=== PATIENT | female | born 1970 | race Caucasian/White ===

== ENCOUNTER 2020-11-13 19:14 | Emergency (ER) | payer OTHER, SELFPAY ==
[2020-11-13 19:17] VITALS: BP 160/90; PULSE 100; RESP 17; TEMP 36.1; O2SAT 100
--- NOTE | 2020-11-13 20:12 | ED.EAR ---
HPI - Ear Problem General Chief complaint: Ear Stated complaint: bilateral ear pain Time Seen by Provider: 11/13/20 19:27 Source: patient and old records reviewed Mode of arrival: ambulatory Limitations: no limitations History of Present Illness HPI Narrative: Patient is a 50-year-old female who presents with bilateral ear pain has been going on for roughly a week or more patient was seen at urgent care had her ears cleaned out and has since been putting drops in the ear and using hydrogen peroxide and is now noting that she has some drainage and increasing pain to the bilateral ears patient denies fever chills nausea vomiting or other URI symptoms patient did not follow-up with the provided ENT referral that she received at urgent care Related Data Allergies Allergy/AdvReac Type Severity Reaction Status Date / Time acetaminophen Allergy Unknown UNKNOWN Verified 11/13/20 19:15 TYLENOL WITH CODEIN Allergy Unknown Uncoded 11/13/20 19:15 Review of Systems Review of Systems: All systems reviewed & are unremarkable except as noted in HPI and below PMFSH Past Medical History Medical History (Updated 11/13/20 @ 20:15 by Rick Hopper PA-C) Bipolar disorder Social History Social History (Updated 11/13/20 @ 20:13 by Rick Hopper PA-C) Smoking status: Current every day smoker Gender identity (if verbalized by the patient): Female Exam Narrative: Exam Narrative: GENERAL: Well-appearing, well-nourished, and in no acute distress. HEAD: Normocephalic, atraumatic. EYES: PERRLA and EOMI. ENT: Nares clear, no rhinorrhea or epistaxis. Mucous membranes moist. Oropharynx without tonsillar hypertrophy exudate or other lesions. Bilateral TMs slightly erythematous with poor landmarks patent canals NECK: Supple. No adenopathy or masses. CHEST: Clear to auscultation. No respiratory distress. No wheezes rales or rhonchi HEART: Regular rate and rhythm. No murmur heard. SKIN: Warm, dry, no rash. NEURO: No focal deficits. Alert and oriented x3. Cranial nerves II through XII grossly intact PSYCH: Normal mood and affect. Course Course Emergency Course: Patient in the room no distress advised to discontinue any drops in the ear will be referred to ENT and treated for otitis media Vital Signs Vital signs: Vital Signs Temperature 97 F L 11/13/20 19:17 Pulse Rate 100 11/13/20 19:17 Respiratory Rate 17 11/13/20 19:17 Blood Pressure 160/90 H 11/13/20 19:17 Pulse Oximetry 100 11/13/20 19:17 Temperature 97 F L 11/13/20 19:17 Pulse Rate 100 11/13/20 19:17 Respiratory Rate 17 11/13/20 19:17 Blood Pressure 160/90 H 11/13/20 19:17 Pulse Oximetry 100 11/13/20 19:17 Medical Decision Making MDM Narrative Medical decision making narrative: Patient with otitis media will be treated with antibiotics and medications for symptoms given ENT follow-up afebrile nontoxic-appearing no distress no emesis ABCs and vital signs intact and stable Vital Signs Vital Signs: Vital Signs Temperature 97 F L 11/13/20 19:17 Pulse Rate 100 11/13/20 19:17 Respiratory Rate 17 11/13/20 19:17 Blood Pressure 160/90 H 11/13/20 19:17 Pulse Oximetry 100 11/13/20 19:17 Temperature 97 F L 11/13/20 19:17 Pulse Rate 100 11/13/20 19:17 Respiratory Rate 17 11/13/20 19:17 Blood Pressure 160/90 H 11/13/20 19:17 Pulse Oximetry 100 11/13/20 19:17 Discharge Plan Discharge Clinical Impression: Otitis media Patient Disposition: Home, Self-Care Condition: Stable Instructions: Antibiotic Form, Ear Infection (ED) Additional Instructions: Follow up with ENT within 1-2 days to set up for reevaluation. Go to ER for shortness of breath, difficulty breathing, chest pain, fever/chills, weakness, nauseau/vomitting, increasing drainage or pain involving the ears etc. or any other concerns. Discontinue placing anything in the ear Take any prescribed medications as directed. Follow patient educat
[2020-11-13 20:40] VITALS: BP 148/79; PULSE 90; RESP 18; O2SAT 99
== END 2020-11-13 20:40 | disposition home or self-care (01) ==
PROVIDERS: Emergency Provider Emergency Medicine; PCP Family Medicine
DX: H66.93 Otitis media, unspecified, bilateral (principal); F17.200 Nicotine dependence, unspecified, uncomplicated
CPT/HCPCS: 99283

== ENCOUNTER 2020-12-24 16:25 | Emergency (ER) | payer MEDICARE, SELFPAY ==
--- NOTE | ~2020-12-24 | XR_ITS ---
EXAMINATION: XR tibia fibula RT 2V EXAM DATE: 12/24/2020 19:57 INDICATION: Initial encounter following injury, with pain of the right lower leg. TECHNIQUE: Right tibia/fibula frontal and lateral projections obtained and reviewed. There is no panchito or study for comparison. FINDINGS: Right tibial and fibular shafts unremarkable. There are no acute fractures or dislocations identified. There is no subcutaneous gas. The soft tissue is unremarkable. There are no radiopaq ue foreign bodies. IMPRESSION: 1. XR tibia fibula RT 2V exam without acute osseous findings. Reviewed, dictated and finalized at location A. [facility]
--- NOTE | ~2020-12-24 | XR_ITS ---
EXAMINATION: XR knee RT min 4V EXAM DATE: 12/24/2020 19:57 INDICATION: Initial encounter following injury, with pain of the right knee. Fell yesterday. TECHNIQUE: Right knee frontal, crosstable lateral, orthogonal oblique projections for interpretation . There is no prior study for comparison. FINDINGS: No evidence osteochondral defect or joint body in the right knee joint. There is mild to moderate medial tibiofemoral compartment primary osteoarthritis. There are no acute fractures or disl ocations identified. There is no subcutaneous gas. The soft tissue is unremarkable. There are no radiopaque foreign bodies. No joint effusion. IMPRESSION: 1. Right knee exam without acute osseous findings. Reviewed, dictated and finalized at location A. NSED APPRAISER
--- NOTE | ~2020-12-24 | XR_ITS ---
EXAMINATION: XR hip RT 2V w AP pelvis EXAM DATE: 12/24/2020 19:58 INDICATION: Initial encounter following injury, with pain of the right hip, pelvis. TECHNIQUE: Right hip frontal, 'frog leg' projections for interpretation. Frontal projection pelvis. There is no prior study for comparison. FINDINGS: Smooth right hip femoral head contour, no radiographic evidence of avascular necrosis. The re is mild to moderate symmetric bilateral hip primary osteoarthritis. There are no acute fractures o r dislocations identified. There is no subcutaneous gas. The soft tissue is unremarkable. There a re no radiopaque foreign bodies. IMPRESSION: 1. Pelvis, right hip exam without acute osseous findings. 2. Mild to moderate hip osteoarthritis. Reviewed, dictated and finalized at location A. NSE ATTORNEY
[2020-12-24 17:00] VITALS: BP 173/100; PULSE 99; RESP 18; TEMP 36.8; O2SAT 97
--- NOTE | 2020-12-24 19:21 | ED.LOWEXIN ---
HPI - Extremity Injury (Lower) General Chief Complaint: Extremity Injury, Lower Stated Complaint: fall/leg injury Time Seen by Provider: 12/24/20 19:10 Source: patient Mode of arrival: ambulatory Limitations: no limitations History of Present Illness HPI Narrative: This is a 50-year-old female that presents to the ER for right lower extremity pain after a fall yesterday. Reports she slipped on ice and fell onto her right side. Reports since she has had right hip and knee pain. Pain is worse with movement and relieved with rest. Denies hitting her head, loss of consciousness, decreased range of motion, or numbness. Related Data Allergies Allergy/AdvReac Type Severity Reaction Status Date / Time acetaminophen Allergy Unknown UNKNOWN Verified 12/24/20 17:03 TYLENOL WITH CODEIN Allergy Unknown Uncoded 12/24/20 17:03 Review of Systems Review of Systems: Narrative: CONSTITUTIONAL: Denies fever MUSCULOSKELETAL: Reports joint pain, and myalgia. NEUROLOGIC: Denies numbness, or weakness. All systems reviewed & are unremarkable except as noted in HPI and below PMFSH Past Medical History Medical History (Updated 12/24/20 @ 20:41 by Jaylyn Ji PA-C) Bipolar disorder History of hypertension Social History Social History (Updated 11/13/20 @ 20:13 by Rick Hopper PA-C) Smoking status: Current every day smoker Gender identity (if verbalized by the patient): Female Exam Narrative: Exam Narrative: GENERAL: Well-appearing, well-nourished, and in no acute distress. HEAD: Normocephalic, atraumatic. EYES: PERRLA and EOMI. ENT: Nares clear, no rhinorrhea or epistaxis. Mucous membranes moist. Oropharynx without tonsillar hypertrophy exudate or other lesions. Bilateral TMs pearly greene non-bulging NECK: Supple. No adenopathy or masses. No midline cervical spine tenderness CHEST: Clear to auscultation. No respiratory distress. No wheezes rales or rhonchi HEART: Regular rate and rhythm. No murmur heard. Normal peripheral pulses. BACK: No midline thoracic or lumbar spine tenderness EXTREMITIES: Normal range of motion. No edema or obvious deformity. Normal DP pulses SKIN: Warm, dry, no rash. NEURO: No focal deficits. Alert and oriented x3. PSYCH: Normal mood and affect Course Vital Signs Vital signs: Vital Signs Temperature 98.3 F 12/24/20 17:00 Pulse Rate 99 12/24/20 17:00 Respiratory Rate 18 12/24/20 17:00 Blood Pressure 173/100 H 12/24/20 17:00 Pulse Oximetry 97 12/24/20 17:00 Temperature 98.3 F 12/24/20 17:00 Pulse Rate 99 12/24/20 17:00 Respiratory Rate 18 12/24/20 17:00 Blood Pressure 173/100 H 12/24/20 17:00 Pulse Oximetry 97 12/24/20 17:00 MDM - Extremity Injury (Lower) MDM Narrative Medical decision making narrative: Patient presents the emergency department for right hip and knee pain after a fall yesterday. Right hip, knee, and tib-fib x-rays are without acute osseous abnormalities. Patient was updated on case findings. She was instructed to rest, ice and take [id number] pain medication as needed. Given Wes wrap for the knee. Would not like crutches as she reports she has difficulty using them. She is to follow-up with primary care doctor. She was given warnings to return to the ER Imaging Data Radiologist's impression: ITS Impressions Knee X-Ray 12/24/20 19:58 IMPRESSION: 1. Right knee exam without acute osseous findings. Tibia/Fibula X-Ray 12/24/20 20:07 IMPRESSION: 1. XR tibia fibula RT 2V exam without acute osseous findings. Hip/Pelvis X-Ray 12/24/20 20:08 IMPRESSION: 1. Pelvis, right hip exam without acute osseous findings. 2. Mild to moderate hip osteoarthritis. Critical Care Time Critical Care Time Critical Care Time: No Discharge Plan Discharge Clinical Impression: Contusion of hip, right Qualifiers: Encounter type: initial encounter Qualified Code(s): S70.01XA - Contusion of right hip, initial encount
[2020-12-24] MEDS: KETOROLAC (*BKC) 60 MG/2 ML VIAL IM (21:01)
[2020-12-24 21:08] VITALS: BP 149/90; PULSE 91; RESP 20; TEMP 37.1; O2SAT 96
== END 2020-12-24 21:09 | disposition home or self-care (01) ==
PROVIDERS: Emergency Provider Emergency Medicine; PCP Family Medicine
DX: S70.01XA Contusion of right hip, initial encounter (principal); S83.91XA Sprain of unspecified site of right knee, initial encounter; I10 Essential (primary) hypertension; F17.200 Nicotine dependence, unspecified, uncomplicated; M16.11 Unilateral primary osteoarthritis, right hip; W00.0XXA Fall on same level due to ice and snow, initial encounter
CPT/HCPCS: 73502; 73564; 73590; 96372; 99284; J1885

== ENCOUNTER 2021-11-21 09:43 | Emergency (ER) | payer OTHER, SELFPAY ==
[2021-11-21 10:04] VITALS: BP 136/77; PULSE 110; RESP 18; TEMP 36.2; O2SAT 98
[2021-11-21 11:29] VITALS: BP 128/70; PULSE 95; RESP 20; TEMP 36.3; O2SAT 98
--- NOTE | 2021-11-21 11:38 | ED.GENADULT ---
HPI - General Adult General Chief complaint: Psychiatric Symptoms Stated complaint: out of psych medicaion/manic/hallucinations Time Seen by Provider: 11/21/21 11:37 History of Present Illness HPI narrative: Patient is a 51-year-old female who comes to the ED today requesting a refill of her clonazepam. Patient reports has been out of her clonazepam for the last 2 days and because this has been trouble sleeping. She normally takes this medicine twice daily. It was being prescribed by Dr. Freedman who has retired according to the patient. She has an appointment with her psychiatrist tomorrow. She says that she has been having trouble sleeping the last few nights. However she slept in the room after triage and says she is feeling better now would like to be discharged. No other symptoms or concerns. Related Data Allergies Allergy/AdvReac Type Severity Reaction Status Date / Time acetaminophen Allergy Unknown UNKNOWN Verified 12/24/20 17:03 TYLENOL WITH CODEIN Allergy Unknown Uncoded 12/24/20 17:03 Review of Systems Constitutional: Constitutional: Reports as per HPI, Denies fever(s), Denies night sweats and Denies weakness Cardiovascular: Cardiovascular: Denies chest pain, Denies edema, Denies leg edema, Denies dyspnea and Denies orthopnea Respiratory: Respiratory: Denies cough and Denies dyspnea Gastrointestinal: Gastrointestinal: Denies abdominal pain, Denies constipation, Denies diarrhea, Denies nausea and Denies vomiting Musculoskeletal: Musculoskeletal: Denies abnormal gait, Denies back pain, Denies numbness and Denies tingling Neurologic: Denies Abnormal speech present, Denies abnormal gait, Denies numbness, Denies tingling and Denies weakness Psychiatric: Psychiatric: Denies homicidal ideation and Denies suicidal ideation [facility] Past Medical History Medical History (Updated 11/21/21 @ 12:20 by William Jordan PA-C) Bipolar disorder History of hypertension Social History Social History (Updated 11/13/20 @ 20:13 by Rick Hopper PA-C) Smoking status: Current every day smoker Gender identity (if verbalized by the patient): Female Exam Const: General: cooperative, healthy appearing, comfortable, no acute distress, well developed, alert, awake and Physically active Orientation/consciousness: patient oriented x3 HENMT: Head: normal to inspection, normocephalic and atraumatic Ears: external ears normal General nose exam: Normal external nose present Eyes: Pupils: Equal, round and reactive pupils present EOM: EOMs intact bilaterally Neck: Neck: normal visual inspection Chest: Chest palpation & inspection: normal inspection of the chest and no tenderness Resp: Effort & Inspection: normal respiratory effort and able to speak in complete sentences Auscultation: clear to auscultation bilaterally Cardio: Rate: regular rate Rhythm: regular rhythm GI: Inspection: normal to inspection GI Palp: No abdominal tenderness : General: Yes no CVA tenderness Back/Spine/Pelvis: Back: no CVA tenderness Skin: General skin exam: normal color and no rashes or lesions noted Lesions: no lesions Neuro: General: patient oriented x3, no focal motor deficits and CN's II-XI intact bilaterally Cranial nerves: Yes Equal, round and reactive pupils present Speech: No Abnormal speech present Extrem: General: normal to inspection and full ROM Psych: Appearance: grossly normal and well kempt Mental Status: mental status grossly normal Speech and movement: Normal speech and movement present Affect: normal affect Thought process: Normal thought process present Course Course Emergency Course: I explained to patient that I would not be refilling any controlled substances. She has no signs of benzodiazepine withdrawal. She will keep her appoint with her psychiatrist tomorrow. Agreeable with plan for discharge with as needed hydroxyzine. Offered melatonin but she says that that causes her to have nightmares. Vital
== END 2021-11-21 12:28 | disposition home or self-care (01) ==
PROVIDERS: Emergency Provider Emergency Medicine; PCP Family Medicine
DX: G47.00 Insomnia, unspecified (principal); F31.9 Bipolar disorder, unspecified; I10 Essential (primary) hypertension; F17.200 Nicotine dependence, unspecified, uncomplicated
CPT/HCPCS: 99281; 99283

== ENCOUNTER 2022-02-08 21:02 | Emergency (ER) | payer OTHER, SELFPAY ==
[2022-02-08 21:08] VITALS: BP 124/73; PULSE 103; RESP 16; TEMP 36.6; O2SAT 97
--- NOTE | 2022-02-08 21:17 | ED.GENADULT ---
HPI - General Adult General Chief complaint: Extremity Problem,Nontraumatic Stated complaint: bilat lower ext burning pain Time Seen by Provider: 02/08/22 21:17 Source: patient Mode of arrival: ambulatory Limitations: no limitations History of Present Illness HPI narrative: 52-year-old with a history of hypertension, hyperlipidemia, schizophrenia here with complaints of bilateral leg lower extremity pain for past 1 hour. She denies any trauma. She states that from knee below she has been having pain. Patient states that she received a steroid injection in her right knee several months ago. She denies any fever or chills. Onset (ago): hour(s) (2) Location: lower extremity Severity: moderate Quality: burning and aching Pain Consistency: constant Relieving factors: none Exacerbating factors: none Associated symptoms: denies other symptoms Related Data Allergies Allergy/AdvReac Type Severity Reaction Status Date / Time acetaminophen Allergy Unknown UNKNOWN Verified 12/24/20 17:03 TYLENOL WITH CODEIN Allergy Unknown Uncoded 12/24/20 17:03 Review of Systems Review of Systems: All systems reviewed & are unremarkable except as noted in HPI and below Constitutional: Constitutional: Reports no additional constitutional complaints Eyes: Eyes: Reports no additional eye complaints ENT: Reports system reviewed and no additional complaints, except as documented Cardiovascular: Cardiovascular: Reports no additional cardiovascular complaints Respiratory: Respiratory: Reports no additional respiratory complaints Gastrointestinal: Gastrointestinal: Reports no additional gastrointestinal complaints Musculoskeletal: Musculoskeletal: Reports as per HPI Neurologic: Reports system reviewed and no additional complaints, except as documented PMFSH Past Medical History Medical History Bipolar disorder History of hypertension Social History Social History Smoking status: Current every day smoker Gender identity (if verbalized by the patient): Female Exam Narrative: GENERAL: Well-appearing, well-nourished, and in no acute distress. HEAD: Normocephalic, atraumatic. EYES: PERRLA and EOMI. NECK: Supple. CHEST: Clear to auscultation. No respiratory distress. HEART: Regular rate and rhythm. No murmur heard. Normal peripheral pulses. ABDOMEN: Soft, nontender, nondistended, normal active bowel sounds. EXTREMITIES: Normal range of motion. No edema. No evidence of any cellulitis SKIN: Warm, dry, no rash. NEURO: No focal deficits. Alert and oriented x3. PSYCH: Normal mood and affect. Course Vital Signs Vital signs: Vital Signs Temperature 36.6 C 02/08/22 21:08 Pulse Rate 103 H 02/08/22 21:08 Respiratory Rate 16 02/08/22 21:08 Blood Pressure 124/73 02/08/22 21:08 Pulse Oximetry 97 02/08/22 21:08 Temperature 36.6 C 02/08/22 21:08 Pulse Rate 103 H 02/08/22 21:08 Respiratory Rate 16 02/08/22 21:08 Blood Pressure 124/73 02/08/22 21:08 Pulse Oximetry 97 02/08/22 21:08 Medical Decision Making Vital Signs Vital Signs: Vital Signs Temperature 36.6 C 02/08/22 21:08 Pulse Rate 103 H 02/08/22 21:08 Respiratory Rate 16 02/08/22 21:08 Blood Pressure 124/73 02/08/22 21:08 Pulse Oximetry 97 02/08/22 21:08 Temperature 36.6 C 02/08/22 21:08 Pulse Rate 103 H 02/08/22 21:08 Respiratory Rate 16 02/08/22 21:08 Blood Pressure 124/73 02/08/22 21:08 Pulse Oximetry 97 02/08/22 21:08 Discharge Plan Discharge Clinical Impression: Lower extremity pain Qualifiers: Laterality: bilateral Qualified Code(s): M79.604 - Pain in right leg Patient Disposition: Home, Self-Care Condition: Stable Instructions: Antibiotic Form, Leg Pain (ED) Additional Instructions: continue home medications,take pain medications as prescribed. Prescriptions: New naproxe
[2022-02-08 21:27] VITALS: BP 104/69; PULSE 97; RESP 16; TEMP 36.6; O2SAT 98
== END 2022-02-08 21:50 | disposition home or self-care (01) ==
LOC: ANHED 21:29
PROVIDERS: Emergency Provider Family Medicine; PCP Family Medicine
DX: M79.604 Pain in right leg (principal); M79.605 Pain in left leg; F31.9 Bipolar disorder, unspecified; I10 Essential (primary) hypertension
CPT/HCPCS: 99283

== ENCOUNTER 2022-03-03 05:28 | Emergency (ER) | payer OTHER, SELFPAY ==
[2022-03-03 05:35] VITALS: BP 152/98; PULSE 104; RESP 16; TEMP 36.4; O2SAT 100
--- NOTE | 2022-03-03 06:40 | ED.EXTPRO ---
HPI - Extremity Problem General Chief complaint: Extremity Problem,Nontraumatic Stated complaint: bilateral leg pain Time Seen by Provider: 03/03/22 06:05 Source: patient Mode of arrival: ambulatory Limitations: no limitations History of Present Illness [facility] Narrative: Patient is a 52-year-old female complaining of bilateral lower extremity pain, intermittent, described as cramping x1 year. Patient currently denies any pain at this time. Patient denies any calf pain or swelling. Patient denies any chest pain or shortness of breath. Patient denies any fever or chills. Related Data Home Medications Medication Instructions Recorded Confirmed cyclobenzaprine mg 03/03/22 diclofenac sodium PO 03/03/22 lisinopril 03/03/22 olanzapine mg 03/03/22 rosuvastatin mg 03/03/22 Allergies Allergy/AdvReac Type Severity Reaction Status Date / Time acetaminophen Allergy Unknown UNKNOWN Verified 03/03/22 05:44 TYLENOL WITH CODEIN Allergy Unknown Uncoded 03/03/22 05:44 Review of Systems Review of Systems: Per [facility] Past Medical History Medical History Bipolar disorder History of hypertension Social History Social History Smoking status: Current every day smoker Gender identity (if verbalized by the patient): Female Exam Const: General: cooperative, comfortable, no acute distress, well developed, alert and awake; No confusion Nutritional Appearance: well nourished Orientation/consciousness: oriented to person, oriented to place, oriented to time, patient oriented x3 and No confusion Limitations: no limitations HENMT: Head: normal to inspection, normocephalic and atraumatic Ears: hearing grossly normal bilaterally, TM normal on the right and TM normal on the left General nose exam: Normal external nose present, Normal nares present and No nasal discharge present Face and sinus: normal facial exam Mouth: Yes Normal oral and palatal mucosa present, Yes lip normal, Yes tongue normal and Yes oropharynx normal Throat: posterior oropharynx normal, tonsils normal and uvula midline Eyes: General: appearance normal, both eyes and all related structures Pupils: Equal, round and reactive pupils present EOM: EOMs intact bilaterally Neck: Neck: normal visual inspection, full ROM, no lymphadenopathy and no meningeal signs Chest: Chest palpation & inspection: normal inspection of the chest Resp: Effort & Inspection: normal respiratory effort, able to speak in complete sentences, no respiratory distress and not tachypneic Auscultation: clear to auscultation bilaterally, no crackles, no rales, no rhonchi and no wheezes Cardio: Rate: regular rate Rhythm: regular rhythm GI: Inspection: normal to inspection GI Palp: No abdominal tenderness, Yes Soft to palpation, No Tenderness to palpation present (GI), No Guarding due to palpation present (GI), No Rigid due to palpation and No Rebound tenderness present Auscultation: normal bowel sounds : General: Yes no CVA tenderness Back/Spine/Pelvis: Back: no CVA tenderness Skin: General skin exam: normal color, no rashes or lesions noted, elasticity normal and turgor normal Neuro: General: oriented to person, oriented to place, oriented to time, patient oriented x3, tone normal, moves all extremities, Normal light touch and pain sensation, no meningeal signs, no focal motor deficits, CN's II-XI intact bilaterally and No confusion Cranial nerves: Yes Equal, round and reactive pupils present Speech: No Abnormal speech present Sensory Exam: No Sensory deficit (Neuro) Extrem: General: normal to inspection, full ROM and capillary refill normal Other: Negative for calf pain or tenderness. Neurovascular is intact Psych: Appearance: grossly normal and well kempt Mental Status: mental status grossly normal Speech and movement: Normal speech and movement present Affect: graeme
[2022-03-03] MEDS: KETOROLAC 30 MG/ML VIAL (*BKC) IM (06:49)
== END 2022-03-03 07:25 | disposition home or self-care (01) ==
PROVIDERS: Emergency Provider Emergency Medicine; PCP Family Medicine
DX: M79.605 Pain in left leg (principal); M79.604 Pain in right leg; I10 Essential (primary) hypertension; F17.200 Nicotine dependence, unspecified, uncomplicated
CPT/HCPCS: 96372; 99283; J1885

== ENCOUNTER 2022-08-07 14:43 | Outpatient (CLI) | payer OTHER, SELFPAY ==
--- NOTE | ~2022-08-07 | CT_ITS ---
EXAMINATION: CT knee LT wo con, CT knee RT wo con DATE: 08/07/2022 15:15 INDICATION: Bilateral knee pain TECHNIQUE: 1. High resolution computed tomography (CT) of the left knee was performed without intravenous contra st. Additional sagittal and coronal reconstructions were performed. Automated exposure control and it erative reconstruction technique were employed. The dose-length product was 483.46 mGy-cm. 2. High resolution computed tomography (CT) of the right knee was performed without intravenous contr ast. Additional sagittal and coronal reconstructions were performed. Automated exposure control and i terative reconstruction technique were employed. The dose-length product was 483.46 mGy-cm. COMPARISON: Right knee radiographs dated 12/24/2020 FINDINGS: Left knee: Bone alignment is normal. No fracture. Tricompartmental osteoarthritis with moderate to severe joint space narrowing with subarticular eburnation and moderate-sized marginal osteophytes at the medial co mpartment. Additional moderate sized marginal osteophytes at the lateral and patellofemoral compartme nts without significant joint space narrowing. There is a moderate-sized left knee joint effusion. Lo ose osteochondral body in the recess posterior to the posterior cruciate ligament. Additional small l oose osteochondral body versus heterotopic ossicle along the lateral margin of the inferior patella. Right knee: Bone alignment is normal. Additional tricompartmental osteoarthritis at the right knee with moderate size marginal osteophytes in all 3 compartments. There is slightly less severe moderate severity join t space during the medial compartment and relatively preserved joint spaces in the lateral and patell ofemoral compartments. Small right knee joint effusion. Small loose osteochondral body versus heterot opic ossicle along the lateral margin of the inferior patella. IMPRESSION: 1. Medial compartment predominant osteoarthritis of both knees, at least moderate to severe on the le ft and moderate on the right although severity of joint space narrowing can be underestimated on nonw eightbearing imaging. 2. Moderate-sized left and small right knee joint effusions. Reviewed, dictated and finalized at location A. IMPRESSION: 1. Medial compartment predominant osteoarthritis of both knees, at least modera te to severe on the left and moderate on the right although severity of joint s pace narrowing can be underestimated on nonweightbearing imaging. 2. Moderate-sized left and small right knee joint effusions.
== END 2022-08-07 14:44 | disposition home or self-care (01) ==
PROVIDERS: PCP Family Medicine; Visit Provider Nurse Practitioner Adult Health
DX: M17.0 Bilateral primary osteoarthritis of knee (principal); M25.462 Effusion, left knee; M25.461 Effusion, right knee
CPT/HCPCS: 73700

== ENCOUNTER 2022-09-12 14:22 | Outpatient (CLI) | payer OTHER, SELFPAY ==
--- NOTE | ~2022-09-12 | MR_ITS ---
EXAMINATION: MR knee LT wo con DATE: 09/12/2022 15:03 INDICATION: Left knee osteoarthritis. TECHNIQUE: Magnetic resonance imaging (MRI) of the left knee was performed without intravenous contra st. Sequences included coronal PD-weighted FSE, coronal PD-weighted FS FSE, sagittal T2-weighted FSE , sagittal PD-weighted FS FSE and axial PD weighted fat saturated FSE. COMPARISON: None. FINDINGS: Medial compartment: Complex tear with macerated appearance to the anterior body and medial side of the anterior horn of t he medial meniscus which are extruded beyond the margins of the joint space. Extensive partial thickn ess cartilage loss along the weightbearing medial femoral condyle and medial tibial plateau most katelyn re anteriorly where it reaches full-thickness with underlying eburnation and edema-like marrow signal changes. Moderate size marginal osteophytes are present. Lateral compartment: Lateral meniscus is normal. Articular cartilage is normal. Small marginal osteophytes are present. Patellofemoral compartment: Diffuse partial thickness patellar cartilage loss most prominent across the central third of the velazquez lla where it involves greater than 50% the cartilage thickness but without degenerative subchondral c hanges. Deep chondral ulceration and fissuring without degenerative subchondral changes at the inferi or aspect of the medial trochlea and trochlear groove and the inferomedial aspect of the lateral troc hlea. Moderate-sized marginal osteophytes are present. Ligaments and tendons: Anterior and posterior cruciate ligaments are normal. The medial collateral ligament and fibular bob ateral ligament complex are normal. The extensor mechanism is normal. The visualized medial and later al hamstring tendons as well as the iliotibial band are normal. Fluid: Small knee joint effusion at the suprapatellar pouch. No loose osteochondral bodies identified. Mild synovitis at the suprapatellar pouch and along the posterior margin of Hoffa's fat pad. A few small g anglion cysts arising from the superior recesses along the margins of the medial and lateral heads of the gastrocnemius. Trace amount of fluid in the small 's cyst. Mild prepatellar edema without d iscrete bursal fluid collection. Osseous/other: Bone alignment is normal. No fracture or pathologic marrow replacing process. Intraosseous ganglion c yst at the posterolateral rim of the medial tibial plateau. IMPRESSION: 1. Medial meniscal extrusion with complex tear at the junction of the anterior horn and body of the m edial meniscus. 2. 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 Reviewed, dictated and finalized at location A. [facility] IMPRESSION: 1. Medial meniscal extrusion with complex tear at the junction of the anterior horn and body of the medial meniscus. 2. Tricompartmental osteoarthritis, severe with extensive high and moderate gra de chondromalacia in medial compartment, mild to moderate severity with moderat e grade chondromalacia in the patellofemoral compartment and minimal with relat ively preserved cartilage but small marginal osteophytes in the lateral compart ment.
== END 2022-09-12 14:23 | disposition home or self-care (01) ==
PROVIDERS: PCP Family Medicine; Visit Provider Nurse Practitioner Adult Health
DX: M25.462 Effusion, left knee (principal); S83.232A Complex tear of medial meniscus, current injury, left knee, initial encounter; M17.12 Unilateral primary osteoarthritis, left knee; M94.262 Chondromalacia, left knee
CPT/HCPCS: 73721

== ENCOUNTER 2023-11-13 12:42 | Emergency (ER) | payer OTHER, SELFPAY ==
--- NOTE | ~2023-11-13 | XR_ITS ---
XR knee LT min 4V DATE: 11/13/2023 14:11 INDICATION: Left knee pain, spasms. Recent left knee replacement. TECHNIQUE: 4 views COMPARISON: None FINDINGS: There is prominent distention of the suprapatellar bursa consistent with knee joint effusio n. Status post left knee joint replacement without patellar resurfacing. No fracture or dislocation, periosteal reaction or bone destruction is detected. IMPRESSION: Suprapatellar knee joint effusion Left knee arthroplasty Reviewed, dictated and finalized at location [facility]
--- NOTE | ~2023-11-13 | US_ITS ---
EXAMINATION: US venous doppler [facility] DATE: 11/13/2023 14:33 INDICATION: Left lower limb pain and swelling. TECHNIQUE: Grayscale ultrasound images without and with compression and Doppler ultrasound images of the left lower extremity veins were obtained. COMPARISON: None. FINDINGS: The visualized portions of left common femoral vein, profunda (deep) femoral vein, femoral vein, popl iteal vein, peroneal veins, posterior tibial veins, and greater saphenous vein outflow are patent. IMPRESSION: 1. No deep venous thrombosis. Reviewed, dictated and finalized at location A. [facility] [employer] [facility]
[2023-11-13 12:44] VITALS: BP 122/75; PULSE 102; RESP 18; TEMP 36.2; O2SAT 97
[2023-11-13 13:52] VITALS: BP 140/92; PULSE 104; RESP 17; TEMP 36.6; O2SAT 96
--- NOTE | 2023-11-13 15:35 | ED.EXTPRO ---
HPI - Extremity Problem General Chief complaint: Extremity Problem,Nontraumatic Stated complaint: Leg spasms Time Seen by Provider: 11/13/23 13:57 Source: patient Mode of arrival: ambulatory Limitations: no limitations History of Present Illness HPI Narrative: Patient is a 53-year-old female who presents to ED with report of left knee pain. Patient reports history of left knee replacement in August [address] Lou. States she has been doing well since the surgery. This morning around 4:00 a.m. she was woken up with pain and what she describes as spasms of her left knee and lower leg. She tried taking her Flexeril at home without improvement. She was sent to the ED to rule out a blood clot. Patient denies any recent injury. She has noted some swelling to her left knee. Denies fevers, redness or warmth of the knee. Denies numbness. Denies chest pain or shortness of breath. Related Data Home Medications Medication Instructions Recorded Confirmed cyclobenzaprine 5 mg tablet mg 03/03/22 diclofenac sodium 50 mg PO 03/03/22 tablet,delayed release lisinopril 20 mg tablet 03/03/22 olanzapine 7.5 mg tablet mg 03/03/22 rosuvastatin 20 mg tablet mg 03/03/22 Allergies Allergy/AdvReac Type Severity Reaction Status Date / Time No Known Allergies Allergy Verified 11/13/23 13:46 Review of Systems Review of Systems: CONSTITUTIONAL: Denies fever, chills, or sweats. MUSCULOSKELETAL: See HPI. NEUROLOGIC: Denies headache, dizziness, numbness, or weakness. All systems reviewed & are unremarkable except as noted in HPI and below [facility] Past Medical History Medical History Bipolar disorder History of hypertension Knee pain Social History Social History Smoking status: Current every day smoker Gender identity (if verbalized by the patient): Female Exam Narrative: GENERAL: Well appearing, obese with BMI of 36.6, non-toxic, in no acute distress. HEAD: Normocephalic, atraumatic. RESPIRATORY: Airway patent, respirations nonlabored. CARDIOVASCULAR: Regular rate and rhythm. Pedal pulses 2+. MUSCULOSKELETAL: Moves all extremities. No gross deformities. Mild limited flexion range motion of left knee due to pain. Healing midline scar to anterior left knee, no evidence of infection/dehiscence/drainage. Mild swelling noted to left anterior knee. Tenderness to inferior lateral joint space. No redness or warmth of left knee. SKIN: Warm, dry, normal color. NEURO: A&O X3. Speech clear. Cranial nerves II-XII grossly intact. Steady gait. No ataxic movements. PSYCHIATRIC: Appropriate mood and affect. Normal interaction. Course Vital Signs Vital signs: Vital Signs Temperature 97.1 F L 11/13/23 12:44 Pulse Rate 102 H 11/13/23 12:44 Respiratory Rate 18 11/13/23 12:44 Blood Pressure 122/75 11/13/23 12:44 Pulse Oximetry 97 11/13/23 12:44 Oxygen Delivery Room Air 11/13/23 12:44 Temperature 98 F 11/13/23 13:52 Pulse Rate 104 H 11/13/23 13:52 Respiratory Rate 17 11/13/23 13:52 Blood Pressure 140/92 H 11/13/23 13:52 Pulse Oximetry 96 11/13/23 13:52 Oxygen Delivery Room Air 11/13/23 12:44 MDM - Extremity (Nontraumatic) MDM Narrative Medical decision making narrative: Patient present ED with several hour onset of left knee pain. Recent replacement. Sent to rule out DVT. Vitals stable upon arrival. Patient in no acute distress. Venous Doppler ultrasound of left lower extremity negative for DVT. X-ray of left knee showing suprapatellar knee joint effusion, no other abnormalities. Normal arthroplasty noted. Patient denies any recent injury. No concern for septic arthritis. No redness, warmth of knee. Patient has been afebrile. Discussed diagnosis of joint effusion, management of such. Will place patient Wes bandage, recommended RICE therapy,
[2023-11-13] MEDS: traMADol HCL (*CRX) 25 MG TABLET PO (15:43)
== END 2023-11-13 15:57 | disposition home or self-care (01) ==
PROVIDERS: Emergency Provider Physician Assistant; PCP Family Medicine
DX: M25.562 Pain in left knee (principal); M79.89 Other specified soft tissue disorders; I10 Essential (primary) hypertension; F31.9 Bipolar disorder, unspecified
CPT/HCPCS: 73564; 93971; 99284; A9270

== ENCOUNTER 2024-03-11 10:12 | Outpatient (CLI) | payer OTHER, SELFPAY ==
--- NOTE | ~2024-03-11 | XR_ITS ---
AP view of the pelvis Clinical history: Evaluate for IUD Findings: No acute fracture or dislocation is seen. Osseous alignment is anatomic. Bilateral hip and SI joint spaces are preserved. Soft tissues are unremarkable. Impression: No significant abnormality is seen. No IUD visualized on this exam. Reviewed, dictated and finalized at [facility]. Impression: No significant abnormality is seen. No IUD visualized on this exam.
--- NOTE | ~2024-03-11 | XR_ITS ---
Supine and upright views of the abdomen Clinical history: Evaluate for IUD Findings: Bowel gas pattern is nonspecific. No evidence for obstruction or free air. No abnormal mass lesion or calcification is seen. Osseous structures are intact. Impression: No significant abnormality is seen. No IUD visualized. Reviewed, dictated and finalized at [facility]. Impression: No significant abnormality is seen. No IUD visualized.
== END 2024-03-11 10:13 | disposition home or self-care (01) ==
LOC: ANHIMG 10:14
PROVIDERS: PCP Internal Medicine; Visit Provider Nurse Practitioner
DX: Z30.431 Encounter for routine checking of intrauterine contraceptive device (principal)
CPT/HCPCS: 72170; 74018

== ENCOUNTER 2024-07-30 13:16 | Outpatient (CLI) | payer OTHER, SELFPAY ==
[2024-07-30 14:41] LABS: Urine Cotinine POSITIVE
== END 2024-07-30 13:17 | disposition home or self-care (01) ==
LOC: ANHLAB 13:32
PROVIDERS: PCP Internal Medicine; Visit Provider Orthopaedic Surgery
DX: F17.210 Nicotine dependence, cigarettes, uncomplicated (principal)
CPT/HCPCS: 80307

== ENCOUNTER 2025-01-03 07:27 | Emergency (ER) | payer OTHER, SELFPAY ==
[2025-01-03 07:29] VITALS: BP 148/88; PULSE 95; RESP 16; TEMP 36.6; O2SAT 98
--- NOTE | 2025-01-03 10:31 | ED.WOUNDLAC ---
HPI - Wound/Laceration General Chief Complaint: Wound/Laceration Stated Complaint: hand wound Time Seen by Provider: 01/03/25 07:49 History of Present Illness HPI narrative: Patient is a 54-year-old female who presents ER with a cut to her right hand. Tripped and fell on outstretched hand yesterday suffering a 3.5 cm irregular cut to the palmar aspect of the hand medially. She did not strike her head or lose consciousness. Continues to have pain so she came in today. No redness or drainage. She did wash area. Tetanus shot up-to-date. Related Data Home Medications ?Medication ?Instructions ?Recorded ?Confirmed ?Last Taken ?Type cyclobenzaprine 5 mg tablet mg 03/03/22 Unknown History diclofenac sodium 50 mg PO 03/03/22 Unknown History tablet,delayed release lisinopril 20 mg tablet 03/03/22 Unknown History olanzapine 7.5 mg tablet mg 03/03/22 Unknown History rosuvastatin 20 mg tablet mg 03/03/22 Unknown History Allergies Allergy/AdvReac Type Severity Reaction Status Date / Time No Known Allergies Allergy Verified 11/13/23 13:46 Review of Systems Constitutional: Constitutional: Reports no additional constitutional complaints Musculoskeletal: Musculoskeletal: Reports no additional musculoskeletal complaints Integumentary/Breasts: Skin/Breast: Reports system reviewed and no additional complaints, except as docu Neurologic: Reports system reviewed and no additional complaints, except as documented PMFSH Past Medical History Medical History Bipolar disorder History of hypertension Knee pain Social History Social History Smoking status: Current every day smoker Gender identity (if verbalized by the patient): Female Exam Narrative: GENERAL: Well-appearing, well-nourished, and in no acute distress. HEAD: Normocephalic, atraumatic. EXTREMITIES: Normal range of motion. No edema. SKIN: Warm, dry, no rash. 2.5 cm abrasion/laceration palmar aspect of the right hand medially non amenable to repair. NEURO: No sensory deficit in the right hand. Alert and oriented x3. PSYCH: Normal mood and affect. Course Course Emergency Course: Irregular and superficial wound. Not amenable to repair and we are at a point where secondary intention healing would be recommended. Discharged home with pain control. Discussed topical antibiotic. Also showed her a ulnar gutter splint that can be purchased to help pad and immobilize the area for increased comfort. Vital Signs Vital signs: Vital Signs Temperature 97.9 F 01/03/25 07:29 Pulse Rate 95 01/03/25 07:29 Respiratory Rate 16 01/03/25 07:29 Blood Pressure 148/88 H 01/03/25 07:29 Pulse Oximetry 98 01/03/25 07:29 Temperature 97.9 F 01/03/25 07:29 Pulse Rate 87 01/03/25 10:48 Respiratory Rate 16 01/03/25 10:48 Blood Pressure 135/87 01/03/25 10:48 Pulse Oximetry 97 01/03/25 10:48 Discharge Plan Discharge Clinical Impression: Open wound, hand Patient Disposition: Home, Self-Care Condition: Stable Instructions: Antibiotic Form Additional Instructions: The wound your hand is a mixture of a cut and an abrasion that is not able to be repaired given the duration of time from injury. Continue to monitor the area for infection. Apply topical antibiotic. Return the ER if you have fevers, your hand is red and hot, your wound is draining pus, or you have additional concerns. Purchase an ulnar gutter velcro splint for comfort. Patient Language: Indonesian Prescriptions: New tramadol 50 mg tablet 50 mg PO Q6H PRN (Reason: pain) Qty: 10 0RF No Action tramadol 50 mg tablet 50 mg PO Q6H PRN (Reason: pain) Qty: 7 0RF lisinopril 20 mg tablet olanzapine 7.5 mg tablet diclofenac sodium 50 mg tablet,delayed release (DR/EC) PO cyclobenzaprine 5 mg tablet rosuvastatin 20 mg tablet Follow-up/Referrals: Bala,MD Fabricio [Primary Care Provider] - 1 Week
[2025-01-03 10:48] VITALS: BP 135/87; PULSE 87; RESP 16; O2SAT 97
== END 2025-01-03 10:59 | disposition home or self-care (01) ==
PROVIDERS: Emergency Provider Emergency Medicine; PCP Internal Medicine
DX: S61.401A Unspecified open wound of right hand, initial encounter (principal); I10 Essential (primary) hypertension; F31.9 Bipolar disorder, unspecified; F17.200 Nicotine dependence, unspecified, uncomplicated; Z79.899 Other long term (current) drug therapy; W01.118A Fall on same level from slipping, tripping and stumbling with subsequent striking against other sharp object, initial encounter
CPT/HCPCS: 73130; 99283